=== PATIENT | female | born 1995 | race Caucasian/White ===

== ENCOUNTER 2022-04-30 17:44 | Observation (INO) | payer BC, MEDICAID, SELFPAY ==
[2022-04-30 17:45] VITALS: BP 138/88; PULSE 94; RESP 14; TEMP 36.4; O2SAT 98; BMI 22.3
--- NOTE | 2022-04-30 18:26 | EX.ED.SAOD ---
HPI History of Present Illness Chief Complaint: Substance Abuse Narrative Narrative: Patient presents wanting detox/rehab from fentanyl use and cocaine use. She states she last went through rehab in December at a different facility. She has never been through detox here. She states she uses at least a gram of fentanyl every other day. She snorts it. She also abuses cocaine. She has past psychiatric history of PTSD but states she does not take benzodiazepines or any other medication for it. Her boyfriend dropped her off because she states that she really wants to get clean. Last fentanyl use was early this morning. PFSH PFSH Medical History no medical history Allergy/AdvReac Type Severity Reaction Status Date / Time No Known Allergies Allergy Verified 04/30/22 17:45 Surgical History no surgical history Social History Smoking Status: Current every day smoker tobacco type: e-cigarettes ROS ROS ED ROS Narrative Constitutional: No fever, no chills. HEENT: No sore throat. No neck pain. No loss of vision. No rhinorrhea. Cardiovascular: No chest pain. No palpitations. No pedal edema. Respiratory: No cough, no shortness of breath. Abdominal: No abdominal pain. No nausea. No vomiting. Genitourinary: No dysuria. No hematuria. Musculoskeletal: No myalgias. No arthralgias. Neurologic: No headaches. No dizziness. No lightheadedness. Skin: No rash. No change in color. Psychiatric: No depression. No anxiety. EXAM Physical Exam Narrative Exam Narrative: Afebrile. Vital signs noted. HEENT: Normocephalic. Atraumatic. PERRL, EOMI. Neck soft and supple. No point tenderness or step off. Cardiovascular: Regular rate and rhythm. No murmurs, rubs, or gallops appreciated. Respiratory: No tachypnea. Lungs clear to auscultation bilaterally. Gastrointestinal: Abdomen soft, nontender, with normoactive bowel sounds. No rebound or guarding. Neurological: Awake. Alert. Nonfocal, nonlateralizing. Skin: No rash. Normal color. No pallor. Musculoskeletal: No pedal edema. Full range of motion extremities. Psychiatric: No suicidal ideation. Const Vital Signs: 04/30/22 17:45 Temperature 97.5 F L Temperature Source Temporal Pulse Rate 94 Respiratory Rate 14 Blood Pressure 138/88 H Blood Pressure Mean 104 Pulse Ox 98 Oxygen Delivery Method Room Air MDM MDM MDM Narrative Medical decision making narrative: Medical screening labs were obtained. They are positive for polysubstance abuse including benzodiazepines, amphetamines, cannabinoids, and MDMA. Patient was discussed with Dr. Loyola for admission for detox. Patient is in stable condition. Lab Data Attestation: I reviewed the patient's lab results. Labs: Laboratory Results - last 24 hr 04/30/22 04/30/22 04/30/22 18:45 18:45 18:45 WBC 6.1 RBC 5.57 H Hgb 15.8 H Hct 47.4 H MCV 85.1 MCH 28.4 MCHC 33.3 RDW Std Deviation 40.8 RDW Coeff of Laine 13.2 Plt Count 488 H MPV 9.3 Immature Gran % (Auto) 0.200 Neut % (Auto) 54.1 Lymph % (Auto) 37.4 [place] % (Auto) 5.7 Eos % (Auto) 2.3 Baso % (Auto) 0.3 Absolute Neuts (auto) 3.3 Absolute Lymphs (auto) 2.28 Nucleated RBC % 0 Sodium 139 Potassium 3.8 Chloride 104 Carbon Dioxide 33.0 H Anion Gap 2 L BUN 9 Creatinine 0.83 Estim Creat Clear Calc 89.47 Est GFR (MDRD) Af Amer 107 Est GFR (MDRD) Non-Af 89 BUN/Creatinine Ratio 10.8 Glucose 84 Calcium 9.7 Total Bilirubin 0.40 AST 17 ALT 48 Alkaline Phosphatase 102 Total Protein 8.9 H Albumin 4.3 Globulin 4.6 H Albumin/Globulin Ratio 0.9 Serum , Qual Urine Opiates Screen Urine Methadone Screen Ur Barbiturates Screen Ur Phencyclidine Scrn Ur Amphetamines Screen MDMA (Ecstasy) Screen U Benzodiazepines Scrn Urine Cocaine Screen U Cannabinoids Screen Ur Drug Screen Comment Ethyl Alcohol < 3.0 04/30/22 04/30/22 18:45 18:48 WBC RBC Hgb Hct MCV MCH MCHC RDW Std Deviation RDW Coeff of Laine Plt Count MPV Immature Gran % (Auto) Neut % (Auto) Lymph % (Auto) [place] % (Auto) Eos % (Auto) Baso % (Auto) Absolute Neuts (auto) Absolute Lymphs (auto) Nucleated RBC % Sodium Potassium Chloride Carbon Dioxide Anion Gap BUN Creatinine Estim Creat Clear Calc Est GFR (MDRD) Af Amer Est GFR (MDRD) Non-Af BUN/Creatinine Ratio Glucose Calcium Total Bilirubin AST ALT Alkaline Phosphatase Total Protein Albumin Globulin Albumin/Globulin Ratio Serum , Qual NEGATIVE Urine Opiates Screen POSITIVE H Urine Methadone Screen NEGATIVE Ur Barbiturates Screen NEGATIVE Ur Phencyclidine Scrn NEGATIVE Ur Amphetamines Screen POSITIVE H MDMA (Ecstasy) Screen POSITIVE H U Benzodiazepines Scrn POSITIVE H Urine Cocaine Screen POSITIVE H U Cannabinoids Screen POSITIVE H Ur Drug Screen Comment Ethyl Alcohol Discharge Plan Dx/Rx/DC Orders Clinical Impression: Polysubstance dependence, Desire for detoxification Disposition Disposition: Acute Care Hospital [facility]
--- NOTE | 2022-04-30 18:58 | CM.ED ---
NAA called Jerome, Addiction Therapist, and advised of patient's admission to [facility]. Tammy FRITZ
[2022-04-30 19:03] LABS: Absolute Lymphocyte Count 2.28 X10^3/uL (0.83-4.51); Absolute Neutrophil Count 3.3 X10^3/uL (2.0-7.7); Basophil# 0.02 X10^3/uL; Basophil% 0.3 % (0-1); Eosinophil# 0.14 X10^3/uL; Eosinophils% 2.3 % (0-5); Hematocrit 47.4 % (37-47); Hemoglobin 15.8 g/dL (12.0-15.0); Lymphocyte # 2.28 X10^3/ul (0.83-4.51); Lymphocyte % 37.4 % (19-41); Mean Corp Hgb Conc 33.3 g/dL (32-36); Mean Corpuscular Hgb 28.4 pg (27.0-32.0); Mean Corpuscular Volume 85.1 fL (81-99); Mean Platelet Vol. 9.3 fl (6.2-12.0); Monocyte# 0.35 X10^3/uL; Monocyte% 5.7 % (0-10); NRBC Flagged by Analyzer 0 % (0-5); Neutrophil # 3.29 X10^3/uL (2.7-7.7); Neutrophil % 54.1 % (47-70); Platelet Count 488 K/mm3 (150-450); RBC Distribution Width CV 13.2 % (11.6-14.6); RBC Distribution Width SD 40.8 fl (35.1-43.9); Red Blood Count 5.57 M/mm3 (4.2-5.4); White Blood Count 6.1 K/mm3 (4.4-11.0)
[2022-04-30 19:21] LABS: Amphetamine Urine VISTA POSITIVE (<1000 ng/mL); Barbiturate Urine VISTA NEGATIVE (< 200 ng/mL); Benzodiazepine Urine VISTA POSITIVE (< 200 ng/mL); Cocaine Urine VISTA POSITIVE (< 300 ng/mL); Ecstacy Urine VISTA POSITIVE (< 500 ng/mL); Methadone Urine VISTA NEGATIVE (< 300 ng/mL); PCP Urine VISTA NEGATIVE (< 25 ng/mL); THC Urine VISTA POSITIVE (< 50 ng/mL); Vista UDS pH Range 5
[2022-04-30 19:23] LABS: ALB/GLOB Ratio 0.9 RATIO (0.9-2.4); AST(SGOT) 17 U/L (15-37); Alanine Aminotransfer ALT/SGPT 48 U/L (13-56); Albumin, Serum 4.3 g/dL (3.2-5.0); Alkaline Phosphatase 102 U/L (45-117); Anion Gap 2 (5-15); BUN 9 mg/dL (7-18); BUN/Creat Ratio 10.8 RATIO (10-20); Calcium,Total 9.7 mg/dL (8.5-10.1); Chloride 104 mmol/L (98-107); Creatinine, Serum 0.83 mg/dL (0.55-1.02); EST Glomerular Filtration Rate 89 mL/min (>60); Est Glom Filt Rate - Afr Amer 107 mL/min (>60); Estimated Creatinine Clearance 89.47 ml/min; Globulin 4.6 g/dL (2.2-4.2); Glucose 84 mg/dL (74-106); Potassium 3.8 mmol/L (3.5-5.1); Protein, Total 8.9 g/dL (6.4-8.2); Sodium Level 139 mmol/L (136-145)
[2022-04-30 19:27] LABS: Internal QC Validated? YES +Cl - CLEAR BKGD; Pregnancy, Serum, hCG Quali. NEGATIVE Negative
[2022-04-30 19:28] LABS: Alcohol, Blood (Medical)-Serum < 3.0 mg/dL
--- NOTE | 2022-04-30 19:41 | CM.ED ---
NAA Note NAA met with patient briefly. She confirmed she is at the hospital for detox from fentanyl. Verbalized understanding of the RAMP rules. No issues or concerns voiced. NAA remains available if needs arise. Tammy FRITZ
--- NOTE | 2022-04-30 20:23 | PCM.HP.STD ---
[facility] - General General Date of Admission: 04/30/22 Date of Service: 04/30/22 Chief Complaint: Desire for detoxification HPI Narrative BRIAN MORALES, is a 27 F with a significant history of PTSD; anxiety disorder; depression and polysubstance abuse and tobacco use who presents to the emergency department with help for detoxification. Fentanyl use: Patient has been using fentanyl for about 1 year. She snorts it. She use of a quarter of a gram to a gram daily. Last time he used was several hours before presentation. Cocaine use: He has been using cocaine recreationally since age 22. She has been using it on and off. She uses about twice in a month. She snorts it. Also she smokes marijuana. Reportedly she has medical marijuana card and so she is allowed to smoke marijuana . She reports withdrawal symptoms of diaphoresis. [facility] Medical History (Updated 04/30/22 @ 20:[address] Doc Loyola MD) Polysubstance dependence Medical History no medical history Home Medications NK 04/30/22 [History Last Taken Unknown] Allergy/AdvReac Type Severity Reaction Status Date / Time No Known Allergies Allergy Verified 04/30/22 17:45 Family History (Updated 04/30/22 @ 20:[address] Doc Loyola MD) Other Alcoholism Suicide Surgical History no surgical history no surgical history Social History Smoking Status: Current every day smoker tobacco type: e-cigarettes ROS ROS Narrative Pertinent positives and pertinent negatives as noted in HPI. All other systems were reviewed and are negative Vital Signs Vital Signs Vital Signs: 04/30/22 17:45 Temperature 97.5 F L Temperature Source Temporal Pulse Rate 94 Respiratory Rate 14 Blood Pressure 138/88 H Blood Pressure Mean 104 Pulse Ox 98 Oxygen Delivery Method Room Air Weight Weight: 58.967 kg Body Mass Index (BMI) 22.3 Physical Exam Narrative Physical exam: General: Well-nourished, well-developed. Head: Normocephalic, atraumatic, no tenderness Eyes: Vision is grossly intact. EOMI ENT, no trauma, moist mucous membranes, no rhinorrhea Neck: Nontender, full range of motion, no spinal tenderness, deformities, step-off CVS: Regular rate and rhythm. S1-S2 present. No murmur, gallop or rub. Respiratory : clear to auscultation bilaterally, chest wall nontender, no wheezing Abdomen: Soft, nontender, nondistended, normal bowel sounds, no masses : Deferred Back: Nontender, no CVA tenderness, no midline spinal tenderness, deformities, step-offs Extremities: Nontender full range of motion, no trauma Skin: Normal color, no trauma, abrasions Neuro: Alert, oriented, cranial nerves II through XII grossly intact. Psychiatry: Normal mood. Normal affect. Not depressed. Not anxious. Results Lab / Micro Data Attestation: I reviewed the patient's lab results. Result Diagrams: 04/30/22 18:45 04/30/22 18:45 Labs: Laboratory Results - last 24 hr 04/30/22 18:45: WBC 6.1, RBC 5.57 H, Hgb 15.8 H, Hct 47.4 H, MCV 85.1, MCH 28.4, MCHC 33.3, RDW Std Deviation 40.8, RDW Coeff of Laine 13.2, Plt Count 488 H, MPV 9.3, Immature Gran % (Auto) 0.200, Neut % (Auto) 54.1, Lymph % (Auto) 37.4, [place] % (Auto) 5.7, Eos % (Auto) 2.3, Baso % (Auto) 0.3, Absolute Neuts (auto) 3.3, Absolute Lymphs (auto) 2.28, Nucleated RBC % 0 04/30/22 18:45: Sodium 139, Potassium 3.8, Chloride 104, Carbon Dioxide 33.0 H, Anion Gap 2 L, BUN 9, Creatinine 0.83, Estim Creat Clear Calc 89.47, Est GFR (MDRD) Af Amer 107, Est GFR (MDRD) Non-Af 89, BUN/Creatinine Ratio 10.8, Glucose 84, Calcium 9.7, Total Bilirubin 0.40, AST 17, ALT 48, Alkaline Phosphatase 102, Total Protein 8.9 H, Albumin 4.3, Globulin 4.6 H, Albumin/Globulin Ratio 0.9 04/30/22 18:45: Ethyl Alcohol < 3.0 04/30/22 18:45: Serum , Qual NEGATIVE 04/30/22 18:48: Urine Opiates Screen POSITIVE H, Urine Methadone Screen NEGATIVE, Ur Barbiturates Screen NEGATIVE, Ur Phencyclidine Scrn NEGATIVE, Ur Amphetamines Screen POSITIVE H, MDMA (Ecstasy) Screen POSITIVE H, U Benzodiazepines Scrn POSITIVE H, Urine Cocaine Screen POSITIVE H, U Cannabinoids Screen POSITIVE H, Ur Drug Screen Comment Assessment & Plan Assessment/Plan (1) Polysubstance dependence: PLAN: Plan Opioid dependence and withdrawal CBC reviewed showed thrombocytosis. Serum negative. Toxicology reviewed showed positive opiates; positive amphetamines; positive for MDMA; positive benzodiazepines; positive cocaine and positive cannabinoids. She denies methamphetamine use. Patient will be started on Subutex and other adjunctive medications: Gabapentin as needed; dicyclomine as needed; Vistaril as needed; methocarbamol as needed; clonidine as needed; Imodium as needed; trazodone as needed and Zofran as needed. Monitor COWS and CINA score Tobacco abuse Counseled Nicotine patch prescribed. DVT prophylaxis Low risk Encourage to ambulate Charges/Coding Visit Charges Inpatient E&M: 01906 Init Hosp L2
[2022-04-30 20:33] VITALS: BP 103/79; PULSE 67; RESP 15; TEMP 36.3; O2SAT 94
[2022-04-30 21:28] VITALS: BMI 21.9
[2022-04-30 21:33] VITALS: BP 128/91; PULSE 77; RESP 16; TEMP 36.9; O2SAT 98
[2022-04-30] MEDS: hydrOXYzine PAM 25 MG Capsule 50 MG PO (22:02)
[2022-04-30] MEDS: Methocarbamol 750 MG Tablet 1500 MG PO (22:02)
[2022-04-30] MEDS: traZODone 100 MG Tablet PO (22:02)
[2022-05-01 02:16] VITALS: BP 109/70; PULSE 72; RESP 14; TEMP 36.8; O2SAT 98
[2022-05-01 05:52] VITALS: BP 107/74; PULSE 62; RESP 16; TEMP 36.5; O2SAT 98
[2022-05-01] MEDS: hydrOXYzine PAM 25 MG Capsule 50 MG PO ×2 (05:56→16:14)
[2022-05-01] MEDS: Methocarbamol 750 MG Tablet 1500 MG PO ×2 (05:56→16:14)
--- NOTE | 2022-05-01 06:52 | PCM.PN.HOSP ---
Subjective Subjective + Restless legs, feels cold. Objective Data Objective Data Vital Signs: Vital Signs Temp Pulse Resp BP Pulse Ox O2 Del Method 36.5 C L 62 16 107/74 98 Room Air 05/01/22 05:52 05/01/22 05:52 05/01/22 05:52 05/01/22 05:52 05/01/22 05:52 05/01/22 05:52 Oxygen Delivery Method Room Air Weight: 56.1 kg Body Mass Index (BMI) 21.9 Lab / Micro Data Result Diagrams: 04/30/22 18:45 04/30/22 18:45 Labs: Laboratory Results - last 24 hr 04/30/22 18:45: WBC 6.1, RBC 5.57 H, Hgb 15.8 H, Hct 47.4 H, MCV 85.1, MCH 28.4, MCHC 33.3, RDW Std Deviation 40.8, RDW Coeff of Laine 13.2, Plt Count 488 H, MPV 9.3, Immature Gran % (Auto) 0.200, Neut % (Auto) 54.1, Lymph % (Auto) 37.4, [place] % (Auto) 5.7, Eos % (Auto) 2.3, Baso % (Auto) 0.3, Absolute Neuts (auto) 3.3, Absolute Lymphs (auto) 2.28, Nucleated RBC % 0 04/30/22 18:45: Sodium 139, Potassium 3.8, Chloride 104, Carbon Dioxide 33.0 H, Anion Gap 2 L, BUN 9, Creatinine 0.83, Estim Creat Clear Calc 89.47, Est GFR (MDRD) Af Amer 107, Est GFR (MDRD) Non-Af 89, BUN/Creatinine Ratio 10.8, Glucose 84, Calcium 9.7, Total Bilirubin 0.40, AST 17, ALT 48, Alkaline Phosphatase 102, Total Protein 8.9 H, Albumin 4.3, Globulin 4.6 H, Albumin/Globulin Ratio 0.9 04/30/22 18:45: Ethyl Alcohol < 3.0 04/30/22 18:45: Serum , Qual NEGATIVE 04/30/22 18:48: Urine Opiates Screen POSITIVE H, Urine Methadone Screen NEGATIVE, Ur Barbiturates Screen NEGATIVE, Ur Phencyclidine Scrn NEGATIVE, Ur Amphetamines Screen POSITIVE H, MDMA (Ecstasy) Screen POSITIVE H, U Benzodiazepines Scrn POSITIVE H, Urine Cocaine Screen POSITIVE H, U Cannabinoids Screen POSITIVE H, Ur Drug Screen Comment Physical Exam Const alert and no apparent distress HEENT head/scalp atraumatic Neuro oriented x3 Sensorium / Orientation: awake and alert Psych affect normal Assessment & Plan Assessment/Plan (1) Opiate withdrawal: PLAN: Patient will be started on Subutex and other adjunctive medications: Gabapentin as needed; dicyclomine as needed; Vistaril as needed; methocarbamol as needed; clonidine as needed; Imodium as needed; trazodone as needed and Zofran as needed. Monitor COWS and CINA score CBC reviewed showed thrombocytosis. Serum negative. Addiction medicine to see and facilitate program upon discharge (2) Polysubstance dependence: PLAN: Toxicology reviewed showed positive opiates; positive amphetamines; positive for MDMA; positive benzodiazepines; positive cocaine and positive cannabinoids. She denies methamphetamine use. Complicates long-term sobriety PLAN: Plan PTSD/Anxiety/Depression: complicates sobriety. Counseling strongly encouraged. Tobacco abuse: Counseled. Nicotine patch prescribed. DVT prophylaxis Low risk Encourage to ambulate Charges/Coding Visit Charges Inpatient E&M: 32285 Subs Hosp L2
[2022-05-01 10:34] VITALS: BP 104/74; PULSE 70; RESP 16; TEMP 36.6; O2SAT 98
[2022-05-01] MEDS: Gabapentin 300 MG Capsule PO ×2 (10:37→20:26)
--- NOTE | 2022-05-01 10:49 | ADDICTION ---
This underwriter mortgage loan met with PT to conduct ASAM, MSE, AUDIT, DUDIT assessments and to plan for d/c. PT A+Ox4 and participated actively. All assessments completed, and placed in PT's chart. PT plans to f/u with individual counselor at [facility] for outpatient counseling services. PT did not indicate a need for transportation post d/c from [facility].
--- NOTE | 2022-05-01 12:59 | CHAPLAIN ---
Type of Pastoral Visit ___ Initial Visit ___ Follow-up Visit ___ On-call Visit ___ General Patient Visit ___ Spiritual Assessment ___ Family Conference ___ Bereavement ___ Rapid Response ___ Code Blue ___ Other (describe below) Pastoral Care Referral From ___ Patient ___ Family ___ Nurse ___ Physician ___ Oracle Architect ___ Machine Stone Polisher Apprentice ___ Other (describe below) Sacrament/Intervention ___ Active listening ___ Anointing ___ Episcopalian ___ Bereavement ___ Communion ___ Gabi exploration ___ ___ Life review ___ Prayer ___ Reconciliation ___ Sacrament of Sick ___ Supportive presence ___ Wedding ___ Other (describe below) Pastoral Comments patient was sleeping at the time of attempted visit
[2022-05-01 16:09] VITALS: BP 109/69; PULSE 81; RESP 16; TEMP 36.8; O2SAT 97
[2022-05-01 20:16] VITALS: BP 124/74; PULSE 71; RESP 16; TEMP 36.9; O2SAT 99
[2022-05-01] MEDS: cloNIDine HCl 0.1 MG Tablet PO (20:26)
[2022-05-01] MEDS: traZODone 100 MG Tablet PO (20:26)
[2022-05-02 02:20] VITALS: BP 104/81; PULSE 80; RESP 14; TEMP 36.8; O2SAT 98
[2022-05-02] MEDS: hydrOXYzine PAM 25 MG Capsule 50 MG PO ×2 (02:24→08:48)
[2022-05-02] MEDS: Methocarbamol 750 MG Tablet 1500 MG PO ×2 (02:24→08:48)
[2022-05-02 06:07] VITALS: BP 119/87; PULSE 86; RESP 16; TEMP 36.8; O2SAT 97
--- NOTE | 2022-05-02 06:51 | PN.HOSP_ITS ---
Subjective Subjective feels better. had been declining buprenorphine d/t concerns for precipitated withdrawal Objective Data Objective Data Vital Signs: Vital Signs Temp Pulse Resp BP Pulse Ox O2 Del Method 36.8 C 86 16 119/87 H 97 Room Air 05/02/22 06:07 05/02/22 06:07 05/02/22 06:07 05/02/22 06:07 05/02/22 06:07 05/02/22 06:07 Oxygen Delivery Method Room Air Weight: 56.1 kg Body Mass Index (BMI) 21.9 Lab / Micro Data Result Diagrams: 04/30/22 18:45 04/30/22 18:45 Physical Exam Const alert and no apparent distress HEENT head/scalp atraumatic Neuro Sensorium / Orientation: awake and alert Psych affect normal Assessment & Plan Assessment/Plan (1) Opiate withdrawal: PLAN: Patient has not been taking the buprenorphine due to concern for precipitated withdrawal. Does appear that the patient next took a dose this morning. Gabapentin as needed; dicyclomine as needed; Vistaril as needed; methocarbamol as needed; clonidine as needed; Imodium as needed; trazodone as needed and Zofran as needed. Monitor COWS and CINA score CBC reviewed showed thrombocytosis. Serum negative. Patient to follow up with [facility] outpt counseling upon discharge. (2) Polysubstance dependence: PLAN: Toxicology reviewed showed positive opiates; positive amphetamines; positive for MDMA; positive benzodiazepines; positive cocaine and positive cannabinoids. She denies methamphetamine use. Complicates long-term sobriety PLAN: Plan PTSD/Anxiety/Depression: complicates sobriety. Counseling strongly encouraged. Tobacco abuse: Counseled. Nicotine patch prescribed. DVT prophylaxis Low risk Encourage to ambulate Disposition: Plan is for discharge on the first. Charges/Coding Visit Charges Inpatient E&M: 97603 Subs Hosp L1
[2022-05-02 07:51] VITALS: BP 108/73; PULSE 79; RESP 18; TEMP 37.1; O2SAT 95
[2022-05-02] MEDS: Buprenorphine HCl 2 MG TAB.SUBL 4 MG SL (08:44)
[2022-05-02] MEDS: Gabapentin 300 MG Capsule PO (10:53)
[2022-05-02] MEDS: cloNIDine HCl 0.1 MG Tablet PO (10:53)
--- NOTE | 2022-05-02 12:44 | CHAPLAIN ---
Type of Pastoral Visit _x__ Initial Visit ___ Follow-up Visit ___ On-call Visit ___ General Patient Visit ___ Spiritual Assessment ___ Family Conference ___ Bereavement ___ Rapid Response ___ Code Blue ___ Other (describe below) Pastoral Care Referral From _x__ Patient ___ Family ___ Nurse ___ Physician ___ Laborer [employer] ___ Parking Worker ___ Other (describe below) Sacrament/Intervention _x__ Active listening ___ Anointing ___ Nondenominational _x__ Bereavement ___ Communion _x__ Gabi exploration ___ _x__ Life review _x__ Prayer ___ Reconciliation ___ Sacrament of Sick _x__ Supportive presence ___ Wedding ___ Other (describe below) Pastoral Comments patient is awake and alert this day; pt is very welcoming of spiritual care and visit of this superintendent radio communications; pt is talkative and expresses her grief over loss in last year of great grandparents with whom she lived and admired; pt's mother of suicide in her senior high of school; pt's father lives close by but is distant from her and others per her report; pt states that she has very little support with exception of her boyfriend with whom she plans to move with to [place] tomorrow; pt reports that she is scared about her future and interprets that with decisions that must be made, unknowns, unresolved grief, fears about addictions; pt says that she has gabi and she reports her desire to have a spiritual life and to attend orthodox; pt is affirmed in thoughts of seeking a professional counselor and a orthodox fellowship when she moves to [place]; pt repeatedly states that I am so glad you came to talk to me and thank you for coming to see me; pt welcomes presence and prayer;
--- NOTE | 2022-05-02 13:02 | NURSING ---
pt resting quietly in bed. meal tray at bedside. pt states meds effective for anxiety and restltessness. pt asking for stuff to shower, supplies given. pt verbalized request that this nurse as Dr. Mays if she could be discharged later tonight instead of tomorrow. pt could not elaborate why she wanted to be discharged tonight or than she had stuff to do. explained to patient discharge would probably depend upon symptoms. pt denies all further needs. call light within reach
[2022-05-02 13:41] VITALS: BP 113/80; PULSE 76; RESP 18; TEMP 37.1; O2SAT 100
--- NOTE | 2022-05-02 14:24 | DCINST_ITS ---
Discharge Instructions Diet Discharge Diet: No restrictions Follow Up Care Please Follow Up With: Luz Elena Test Results: Test results from this visit will be discussed in further detail at your follow- up appointment, if applicable. Discharge Plan Admission Admit Date/Time: 04/30/22 20:20 Primary Reason for Your Visit: Opiate withdrawal Attending Provider: Yang Mays Primary Care Provider: Mauro Correa Consulting Providers: Doc Loyola Discharge Orders/Prescriptions Prescriptions: New ondansetron HCl 8 mg Tablet 8 mg PO Q8H PRN PRN (Reason: NAUSEA) Qty: 10 0RF Referrals / Follow Up: Mauro Correa MD [Primary Care Provider] - Disposition Disposition (needs filled in before D/C Order can be placed): Home, Self Care
--- NOTE | 2022-05-02 16:08 | PCM.DC.SUM ---
Providers Date of Admission: 04/30/22 Primary Care Physician: Mauro Correa MD Reason For Visit: DESIRE FOR DETOXIFICATION Diagnosis Discharge Diagnosis (1) Opiate withdrawal: Status: Acute Code(s): F11.93 - Opioid use, unspecified with withdrawal Plan: Patient has not been taking the buprenorphine due to concern for precipitated withdrawal. Does appear that the patient next took a dose this morning. Gabapentin as needed; dicyclomine as needed; Vistaril as needed; methocarbamol as needed; clonidine as needed; Imodium as needed; trazodone as needed and Zofran as needed. Monitor COWS and CINA score CBC reviewed showed thrombocytosis. Serum negative. Patient to follow up with [facility] outpt counseling upon discharge. (2) Polysubstance dependence: Status: Acute Code(s): F19.20 - Other psychoactive substance dependence, uncomplicated Plan: Toxicology reviewed showed positive opiates; positive amphetamines; positive for MDMA; positive benzodiazepines; positive cocaine and positive cannabinoids. She denies methamphetamine use. Complicates long-term sobriety Plan PTSD/Anxiety/Depression: complicates sobriety. Counseling strongly encouraged. Tobacco abuse: Counseled. Nicotine patch prescribed. DVT prophylaxis Low risk Encourage to ambulate Disposition: Plan is for discharge on the first. Medications at Discharge Home Medications ondansetron HCl 8 mg tablet 8 mg PO Q8H PRN PRN NAUSEA #10 tabs 05/02/22 Hospital Course Operations None Procedures None Summary of Care Provided Minutes Spent on Discharge: 28 Hospital Course: 27-year-old female presents seeking treatment for opiate withdrawal. Patient was offered buprenorphine but declined it until taking a dose today. She went took 1 dose and refused subsequent dosing. Patient from acute opiate withdrawal overall improved. Patient would follow-up with 180 as outpatient but still unclear if patient will actually follow-up. Weight / BMI Weight Weight: 56.1 kg Body Mass Index (BMI) 21.9 ABG / Lab / Microbiology Data Result Diagrams: 04/30/22 18:45 04/30/22 18:45 D/C Instructions Discharge Diet: No restrictions Please Follow Up With: Luz Elena Meaningful Use Info Meaningful Use Diagnoses (Choose all that apply): None applicable Discharge Plan Admission Admit Date/Time: 04/30/22 20:20 Primary Reason for Your Visit: Opiate withdrawal Attending Provider: Yang Mays Primary Care Provider: Mauro Correa Consulting Providers: Doc Loyola Discharge Orders/Prescriptions Prescriptions: New ondansetron HCl 8 mg Tablet 8 mg PO Q8H PRN PRN (Reason: NAUSEA) Qty: 10 0RF Referrals / Follow Up: Mauro Correa MD [Primary Care Provider] - Disposition Disposition (needs filled in before D/C Order can be placed): Home, Self Care Charges/Coding Visit Charges Inpatient E&M: 87670 Disch Hosp
--- NOTE | 2022-05-02 16:11 | NURSING ---
in to discuss dc plans and subutext with patient. pt decided does not want last dose of subutex. Dr. Mays updated, ok with discharge. plan to DC before 1800. attempted to call salesperson burial plots at patient's request. no response.
[2022-05-02 16:26] VITALS: BP 113/82; PULSE 84; RESP 18; TEMP 36.7; O2SAT 100
--- NOTE | 2022-05-02 16:29 | NURSING ---
dc instructions reviewed with patient. called Stef significant other with patient as she states she has no phone.
== END 2022-05-02 16:53 | disposition home or self-care (01) | DRG 897 ==
LOC: ED 20:20 → MS3 20:42
PROVIDERS: Admitting Provider Hospitalist; Emergency Provider Emergency Medicine; PCP Family Medicine
DX: F11.23 Opioid dependence with withdrawal (principal); F15.20 Other stimulant dependence, uncomplicated; F14.20 Cocaine dependence, uncomplicated; F17.290 Nicotine dependence, other tobacco product, uncomplicated; F32.A Depression, unspecified; F43.10 Post-traumatic stress disorder, unspecified; F41.9 Anxiety disorder, unspecified
CPT/HCPCS: 80053; 80307; 82077; 84703; 85025; 99283; 99406

== ENCOUNTER 2023-07-16 00:39 | Inpatient (IN) | payer MEDICAID, SELFPAY ==
[2023-07-16] VITALS (9 sets, daily range): BP systolic 107–136; BP diastolic 61–97; PULSE 60–108; RESP 14–18; TEMP 35.9–36.9; O2SAT 97–100; BMI 26.6
--- NOTE | 2023-07-16 01:44 | EDS_ITS ---
HPI History of Present Illness Chief Complaint: Substance Abuse Informant: patient Narrative Narrative: 28-year-old female presenting to the emergency room requesting detox from fentanyl. Patient states that she snorts fentanyl daily and occasionally uses cocaine. She states she is done various rehab programs in the past. She is from the [facility] but does not have a formal residence. Patient states she has tried Suboxone in the past. She is nervous about doing that program. She is interested in sober living. She denies any evident legal issues. She denies IV drug use. Denies risk of . She last use about 1800 hrs. today [facility] Medical History Anxiety Depression Polysubstance dependence PTSD (post-traumatic stress disorder) Vapes nicotine containing substance Home Medications ondansetron HCl 8 mg tablet 8 mg PO Q8H PRN PRN NAUSEA #10 tabs 05/02/22 [Rx Last Taken Unknown] buspirone 10 mg tablet 10 mg PO DAILY 07/16/23 [History Last Taken Unknown] hydroxyzine HCl 50 mg tablet 50 mg PO Q8H PRN anxiety 07/16/23 [History Last Taken Unknown] Allergy/AdvReac Type Severity Reaction Status Date / Time No Known Allergies Allergy Verified 07/16/23 00:40 Family History Other Alcoholism Suicide Social History Smoking Status: Current every day smoker tobacco type: e-cigarettes ROS ROS ED Constitutional Constitutional ED: Denies chills or weight loss Eyes Eyes: Denies change in vision or diplopia ENT ENT ED: Denies ear pain, rhinorrhea or sore throat Cardiovascular Cardiovascular: Denies chest pain, orthopnea, palpitations or racing heartbeat Respiratory/Chest Respiratory/Chest: Denies cough, dyspnea or orthopnea Gastrointestinal Gastrointestinal: Denies abdominal pain, diarrhea, nausea or vomiting Genitourinary Genitourinary ED: Denies dysuria, hematuria or urinary frequency Musculoskeletal Musculoskeletal: Denies arthralgias or myalgias Integumentary Denies abscess or rash Neurologic Neurologic: Denies headache(s) or weakness Psychiatric Psychiatric: Reports other Details: Anxious ; Denies anxiety, depression, suicidal ideation or suicidal thoughts Endocrine Endocrinology: Denies polydipsia, polyphagia or polyuria Allergic/Immunologic Allergic/Immunologic ED: Denies mouth swelling, tongue swelling or urticaria EXAM Physical Exam Const Vital Signs: 07/16/23 00:40 07/16/23 00:59 Temperature 96.6 F L Temperature Source Temporal Pulse Rate 108 H 99 Respiratory Rate 18 14 Blood Pressure 136/90 H 136/90 H Blood Pressure Mean 105 105 Pulse Ox 97 98 Oxygen Delivery Method Room Air Positive well nourished and well developed General Appearance ED: well developed HEENT Reports normocephalic, head/scalp atraumatic and moist mucous membranes Eyes PERRL and EOMs intact bilaterally Neck no lymphadenopathy, supple and no JVD Resp normal respiratory effort and clear to auscultation bilaterally Cardio regular rate, regular rhythm and no murmurs GI normal to inspection, nondistended, normoactive bowel sounds and non-tender Palpation: soft Back/Spine no CVA tenderness and normal ROM Extremity normal to inspection General Extremety ED: Negative for edema General Extremity: Negative for edema Neuro oriented x3 and CN's II-XII intact bilaterally Sensorium / Orientation: alert Motor Exam: strength 5/5 throughout Psych mental status grossly normal Mood & Affect: Negative for depressed or tearful Skin no rashes or lesions noted and no wounds MDM MDM MDM Narrative Medical decision making narrative: ED addiction labs will be obtained and reviewed. I will speak with the hospitalist regarding admission after reviewing them. Patient is positive for MDMA and cocaine. test is negative. Lab Data Attestation: I reviewed the patient's lab results. Labs: Laboratory Results - last 24 hr 07/16/23 07/16/23 01:35 01:39 WBC 10.6 RBC 4.76 Hgb 13.3 Hct 41.0 MCV 86.1 MCH 27.9 MCHC 32.4 RDW Std Deviation 41.1 RDW Coeff of Laine 13.2 Plt Count 388 MPV 9.0 Immature Gran % (Auto) 0.300 Neut % (Auto) 57.6 Lymph % (Auto) 28.3 [place] % (Auto) 8.7 Eos % (Auto) 4.5 Baso % (Auto) 0.6 Absolute Neuts (auto) 6.1 Absolute Lymphs (auto) 3.00 Nucleated RBC % 0 Sodium 141 Potassium 3.7 Chloride 105 Carbon Dioxide 31.0 Anion Gap 5 BUN 9 Creatinine 0.75 Estim Creat Clear Calc 98.16 Est GFR (MDRD) Af Amer 120 Est GFR (MDRD) Non-Af 99 BUN/Creatinine Ratio 12.0 Glucose 101 Calcium 8.9 Total Bilirubin 0.30 AST 16 ALT 39 Alkaline Phosphatase 89 Total Protein 7.2 Albumin 3.6 Globulin 3.6 Albumin/Globulin Ratio 1.0 Serum , Qual NEGATIVE Urine Opiates Screen NEGATIVE Urine Methadone Screen NEGATIVE Ur Barbiturates Screen NEGATIVE Ur Phencyclidine Scrn NEGATIVE Ur Amphetamines Screen NEGATIVE MDMA (Ecstasy) Screen POSITIVE H U Benzodiazepines Scrn NEGATIVE Urine Cocaine Screen POSITIVE H U Cannabinoids Screen NEGATIVE Ur Drug Screen Comment Ethyl Alcohol < 3.0 Management Discussion w/another healthcare provider: Hospitalist Discharge Plan Dx/Rx/DC Orders Clinical Impression: Opiate withdrawal, Opiate addiction Disposition Disposition: Acute Care Hospital [facility]
[2023-07-16 01:49] LABS: Absolute Neutrophil Count 6.1 X10^3/uL (2.0-7.7); Basophil# 0.06 X10^3/uL; Basophil% 0.6 % (0-1); Eosinophil# 0.48 X10^3/uL; Eosinophils% 4.5 % (0-5); Hemoglobin 13.3 g/dL (12.0-15.0); Lymphocyte % 28.3 % (19-41); Mean Corp Hgb Conc 32.4 g/dL (32-36); Mean Corpuscular Hgb 27.9 pg (27.0-32.0); Mean Corpuscular Volume 86.1 fL (81-99); Monocyte# 0.92 X10^3/uL; Monocyte% 8.7 % (0-10); NRBC Flagged by Analyzer 0 % (0-5); Neutrophil % 57.6 % (47-70); Platelet Count 388 K/mm3 (150-450); RBC Distribution Width CV 13.2 % (11.6-14.6); RBC Distribution Width SD 41.1 fl (35.1-43.9); Red Blood Count 4.76 M/mm3 (4.2-5.4); White Blood Count 10.6 K/mm3 (4.4-11.0)
[2023-07-16 02:01] LABS: Alcohol, Blood (Medical)-Serum < 3.0 mg/dL
[2023-07-16 02:06] LABS: AST(SGOT) 16 U/L (15-37); Alanine Aminotransfer ALT/SGPT 39 U/L (13-56); Albumin, Serum 3.6 g/dL (3.2-5.0); Alkaline Phosphatase 89 U/L (45-117); Anion Gap 5 (5-15); BUN 9 mg/dL (7-18); Calcium,Total 8.9 mg/dL (8.5-10.1); Chloride 105 mmol/L (98-107); Creatinine, Serum 0.75 mg/dL (0.55-1.02); EST Glomerular Filtration Rate 99 mL/min (>60); Est Glom Filt Rate - Afr Amer 120 mL/min (>60); Estimated Creatinine Clearance 98.16 ml/min; Globulin 3.6 g/dL (2.2-4.2); Glucose 101 mg/dL (74-106); Potassium 3.7 mmol/L (3.5-5.1); Protein, Total 7.2 g/dL (6.4-8.2); Sodium Level 141 mmol/L (136-145)
[2023-07-16 02:07] LABS: Internal QC Validated? YES +Cl - CLEAR BKGD; Pregnancy, Serum, hCG Quali. NEGATIVE Negative
[2023-07-16 02:09] LABS: Amphetamine Urine VISTA NEGATIVE (<1000 ng/mL); Barbiturate Urine VISTA NEGATIVE (< 200 ng/mL); Benzodiazepine Urine VISTA NEGATIVE (< 200 ng/mL); Cocaine Urine VISTA POSITIVE (< 300 ng/mL); Ecstacy Urine VISTA POSITIVE (< 500 ng/mL); Methadone Urine VISTA NEGATIVE (< 300 ng/mL); PCP Urine VISTA NEGATIVE (< 25 ng/mL); THC Urine VISTA NEGATIVE (< 50 ng/mL); Vista UDS pH Range 7
--- NOTE | 2023-07-16 03:24 | HP.PCM.HOS_ITS ---
HPI - General General Date of Admission: 07/16/23 Date of Service: 07/16/23 Chief Complaint: Opiate detox HPI Narrative BRIAN MORALES, is a 28 F who presented to the emergency department at [facility] early on 07/16/2023 requesting detox from opiates. Patient's been using for about the last 2 years and indicates she uses about a half a gram a day. Her last use prior to presentation was about 6 PM. She denies any cur rent withdrawal symptoms. About 3 to 4 weeks ago she underwent self detox at home and had minimal symptoms however she was not able to stay sober for any period of time so she decided to present to get more assistance. She denies any other substance abuse however her toxicology screen is also positive for cocaine and MDMA. I suspect it is positive for ecstasy due to her buspirone use at home. Her vital signs are stable. Her CBC is unremarkable. Her chemistry panel is unremarkable. She currently denies any withdrawal symptoms at the time of presentation. All of her previous use has been intranasal. She also admits to utilizing nicotine via vaping. She currently denies need for nicotine patch. [facility] Medical History Anxiety Depression Polysubstance dependence PTSD (post-traumatic stress disorder) Vapes nicotine containing substance Home Medications ondansetron HCl 8 mg tablet 8 mg PO Q8H PRN PRN NAUSEA #10 tabs 05/02/22 [Rx Last Taken Unknown] buspirone 10 mg tablet 10 mg PO DAILY 07/16/23 [History Last Taken Unknown] hydroxyzine HCl 50 mg tablet 50 mg PO Q8H PRN anxiety 07/16/23 [History Last Taken Unknown] Allergy/AdvReac Type Severity Reaction Status Date / Time No Known Allergies Allergy Verified 07/16/23 00:40 Family History Other Alcoholism Suicide no surgical history Social History (Updated 07/16/23 @ 03:[address] Azeb Zurita DO) Smoking Status: Current every day smoker tobacco type: e-cigarettes alcohol intake: never substance use type: opiates ROS Constitutional Constitutional: Denies anorexia, change in weight, chills, fatigue, fever(s), malaise, night sweats, weakness or other Eyes Eyes: Denies blurry vision, change in eye color, change in vision, discharge from eye(s), double vision, erythema, eye pain, loss of vision or other ENT HEENT: Denies abnormal hearing, dysphagia, ear pain, epistaxis, headache(s), hearing loss, nasal congestion, nasal discharge, post nasal drip, sinus pre ssure, sore throat or other Cardiovascular Cardiovascular: Denies chest pain, claudication, dyspnea on exertion, edema, lightheadedness, orthopnea, palpitations, paroxysmal nocturnal dyspnea, rapid heart rate, syncope or other Respiratory/Chest Respiratory/Chest: Denies cough, dyspnea, excessive phlegm production, hemoptysis, productive cough, shortness of breath at rest, shortness of breath with exertion, wheezing or other Gastrointestinal Gastrointestinal: Denies abdominal pain, coffee ground emesis, constipation, diarrhea, dyspepsia, hematemesis, hematochezia, loose stools, melena, nausea, vomiting or other Genitourinary Genitourinary: Denies burning urination, difficulty urinating, dysuria, hematuria, nocturia, urinary frequency, urinary hesitancy, urinary incontinence, urinary urgency or other Musculoskeletal Musculoskeletal: Denies arthralgias, back pain, joint pain, joint stiffness, joint swelling, myalgias, neck pain or other Neurologic Neurologic: Denies abnormal gait, abnormal speech, confusion, disequilibrium, dizziness, focal weakness, headache(s), numbness, paresthesias, seizure-like activity, seizures, syncope, tingling, tremor(s) or other Psychiatric Psychiatric: Reports anxiety and depression; Denies homicidal ideation, suicidal ideation or other Endocrine Endocrinology: Denies change in body appearance, cold intolerance, excessive sweating, heat intolerance, polydipsia, polyuria or other Hematologic/Lymphatic Hematologic/Lymphatic: Denies anemia, easy bleeding, easy bruising, lymphadenopathy or other Allergic/Immunologic Allergic/Immunologic: Denies rhinitis, hives, eczemia, asthma or other Vital Signs Vital Signs Vital Signs: 07/16/23 00:40 07/16/23 00:59 Temperature 96.6 F L Temperature Source Temporal Pulse Rate 108 H 99 Respiratory Rate 18 14 Blood Pressure 136/90 H 136/90 H Blood Pressure Mean 105 105 Pulse Ox 97 98 Oxygen Delivery Method Room Air Weight Weight: 70.5 kg Body Mass Index (BMI) 26.6 Physical Exam Const alert, oriented x3, no apparent distress, average body habitus and well nourished Constitutional Narrative: Young, white female, sitting up in bed, appears comfortable nontoxic, no current obvious withdrawal symptoms General Appearance: cooperative HEENT normocephalic, head/scalp atraumatic, hearing grossly normal bilaterally and moist oral mucous membranes Resp normal respiratory effort, no retractions, no use of accessory muscles and clear to auscultation bilaterally Auscultation: Negative for rales, rhonchi or wheezes Cardio regular rate, regular rhythm, S1 normal heart sound, S2 normal heart sound, no murmurs, no rub, no gallops and no clicks GI normal to inspection, nondistended, normoactive bowel sounds, soft to palpation and non-tender Extremity no clubbing, cyanosis or edema Extremity Narrative: Pedal pulses are 2+ Skin Skin Narrative: Very superficial what appear to be cutting wang on the dorsal surfaces of her left arm Neuro oriented x3, moves all extremities and no focal motor deficits Speech: speech normal Psych affect normal Psych Narrative: Eye contact is good, mood appears to be stable Results Lab / Micro Data 07/16/23 01:35 07/16/23 01:35 Labs: Laboratory Results - last 24 hr 07/16/23 01:35: WBC 10.6, RBC 4.76, Hgb 13.3, Hct 41.0, MCV 86.1, MCH 27.9, MCHC 32.4, RDW Std Deviation 41.1, RDW Coeff of Laine 13.2, Plt Count 388, MPV 9.0, Immature Gran % (Auto) 0.300, Neut % (Auto) 57.6, Lymph % (Auto) 28.3, Wallace % (Auto) 8.7, Eos % (Auto) 4.5, Baso % (Auto) 0.6, Absolute Neuts (auto) 6.1, Abs olute Lymphs (auto) 3.00, Nucleated RBC % 0, Sodium 141, Potassium 3.7, Chloride 105, Carbon Dioxide 31.0, Anion Gap 5, BUN 9, Creatinine 0.75, Estim Creat Clear Calc 98.16, Est GFR (MDRD) Af Amer 120, Est GFR (MDRD) Non-Af 99, BUN/Creatinine Ratio 12.0, Glucose 101, Calcium 8.9, Total Bilirubin 0.30, AST 16, ALT 39, Alkaline Phosphatase 89, Total Protein 7.2, Albumin 3.6, Globulin 3.6, Albumin/Globulin Ratio 1.0, Serum , Qual NEGATIVE, Ethyl Alcohol < 3.0 07/16/23 01:39: Urine Opiates Screen NEGATIVE, Urine Methadone Screen NEGATIVE, Ur Barbiturates Screen NEGATIVE, Ur Phencyclidine Scrn NEGATIVE, Ur Amphetamines Screen NEGATIVE, MDMA (Ecstasy) Screen POSITIVE H, U Benzodiazepines Scrn NEGATIVE, Urine Cocaine Screen POSITIVE H, U Cannabinoids Screen NEGATIVE, Ur Drug Screen Comment Assessment & Plan Assessment/Plan (1) Opiate addiction: (2) Opiate withdrawal: (3) Nicotine abuse: PLAN: Plan Opiate abuse with pending withdrawal -Patient admits to using intranasal half a gram daily -Subutex taper per [facility] protocol -Supportive medications as needed -180 consultation Anxiety -Continue home BuSpar -Continue as needed hydroxyzine Nicotine abuse -Patient vapes -Denied the need for nicotine patch -I did inform her if she feels that she needs nicotine replacement therapy to please let us know DVT prophylaxis -Low risk -Early and frequent ambulation CODE STATUS Full code Charges/Coding Visit Charges Inpatient E&M: 69047 Init Hosp L1
--- NOTE | 2023-07-16 03:41 | ED.RN ---
This RN notified by boiler operator helper that pt was calling [facility] power crane operator and debora, talking about medical history and requesting medications. Went to pt room to address needs. Pt states he needs pain medication. Reminded pt he was offered medication and he declined. Pt states obviously you've never been in fucking pain and have no idea what fucking pain is! Again offered pain medication and pt declined.
[2023-07-16] MEDS: busPIRone 5 MG Tablet 10 MG PO (09:34)
--- NOTE | 2023-07-16 15:24 | CHAPLAIN ---
Type of Pastoral Visit ___ Initial Visit ___ Follow-up Visit ___ On-call Visit ___ General Patient Visit ___ Spiritual Assessment ___ Family Conference ___ Bereavement ___ Rapid Response ___ Code Blue ___ Other (describe below) Pastoral Care Referral From ___ Patient ___ Family ___ Nurse ___ Physician ___ Program Coordinator ___ Director Learning And Development ___ Other (describe below) Sacrament/Intervention ___ Active listening ___ Anointing ___ Roman Catholic ___ Bereavement ___ Communion ___ Gabi exploration ___ ___ Life review ___ Prayer ___ Reconciliation ___ Sacrament of Sick ___ Supportive presence ___ Wedding ___ Other (describe below) Pastoral Comments patient was sleeping at time of attempted visit
--- NOTE | 2023-07-16 16:26 | PCM.PN.HOSP ---
Reason for Visit Reason for Visit: Diagnoses Opioid dependence, uncomplicated (07/16/23) Opioid use, unspecified with withdrawal (07/16/23) Tobacco use (07/16/23) Subjective Subjective Patient seen at bedside this morning. Patient was sleeping in an awkward position on my arrival to the room, with head slumped to the side. Awoke without issue but did appear drowsy throughout my interview. Have concerned that patient may have been high during the interview. Nursing staff confirm that patient has been somnolent throughout the morning, and nurse with addiction medicine also thinks that patient appears to be high on an opiate. Very unlikely her high from yesterday would have lasted this long, have concern that patient may have brought opiates into the hospital and taken them this morning. Patient otherwise denies any acute pain or discomfort. Patient did refuse Subutex this morning notably. Objective Data Objective Data Vital Signs: Vital Signs Temp Pulse Resp BP Pulse Ox O2 Del Method 98.2 F 60 18 112/63 98 Room Air 07/16/23 15:02 07/16/23 15:02 07/16/23 15:02 07/16/23 15:02 07/16/23 15:02 07/16/23 15:02 Oxygen Delivery Method Room Air Weight: 70.5 kg Body Mass Index (BMI) 26.6 Intake & Output: Intake and Output for Last 24 Hours 07/14/23 07/15/23 07/16/23 23:59 23:59 23:59 Intake Total 800 / 800 Balance 800 / 800 Lab / Micro Data 07/16/23 01:35 07/16/23 01:35 Labs: Laboratory Results - last 24 hr 07/16/23 01:35: WBC 10.6, RBC 4.76, Hgb 13.3, Hct 41.0, MCV 86.1, MCH 27.9, MCHC 32.4, RDW Std Deviation 41.1, RDW Coeff of Laine 13.2, Plt Count 388, MPV 9.0, Immature Gran % (Auto) 0.300, Neut % (Auto) 57.6, Lymph % (Auto) 28.3, [place] % (Auto) 8.7, Eos % (Auto) 4.5, Baso % (Auto) 0.6, Absolute Neuts (auto) 6.1, Absolute Lymphs (auto) 3.00, Nucleated RBC % 0, Sodium 141, Potassium 3.7, Chloride 105, Carbon Dioxide 31.0, Anion Gap 5, BUN 9, Creatinine 0.75, Estim Creat Clear Calc 98.16, Est GFR (MDRD) Af Amer 120, Est GFR (MDRD) Non-Af 99, BUN/Creatinine Ratio 12.0, Glucose 101, Calcium 8.9, Total Bilirubin 0.30, AST 16, ALT 39, Alkaline Phosphatase 89, Total Protein 7.2, Albumin 3.6, Globulin 3.6, Albumin/Globulin Ratio 1.0, Serum , Qual NEGATIVE, Ethyl Alcohol < 3.0 07/16/23 01:39: Urine Opiates Screen NEGATIVE, Urine Methadone Screen NEGATIVE, Ur Barbiturates Screen NEGATIVE, Ur Phencyclidine Scrn NEGATIVE, Ur Amphetamines Screen NEGATIVE, MDMA (Ecstasy) Screen POSITIVE H, U Benzodiazepines Scrn NEGATIVE, Urine Cocaine Screen POSITIVE H, U Cannabinoids Screen NEGATIVE, Ur Drug Screen Comment Physical Exam Const alert, no apparent distress and average body habitus Constitutional Narrative: Appeared drowsy but otherwise answering questions appropriately. General Appearance: cooperative and comfortable HEENT normocephalic, head/scalp atraumatic, hearing grossly normal bilaterally, nasal mucous membranes and turbinates normal and moist oral mucous membranes Eyes PERRL, EOMs intact bilaterally and conjunctivae normal Neck full ROM, no lymphadenopathy and supple Lymph Lymphatic: no lymphadenopathy noted Chest inspection of chest normal Resp normal respiratory effort, normal air movement, no use of accessory muscles and clear to auscultation bilaterally Cardio regular rate, regular rhythm, no murmurs and peripheral pulses 2+ throughout GI normal to inspection, nondistended, normoactive bowel sounds, soft to palpation, non-tender and non-distended Back/Spine normal ROM Extremity normal to inspection, full ROM and no pedal edema Skin no rashes or lesions noted Assessment & Plan Assessment/Plan (1) Opiate addiction: PLAN: Plan Patient is a 28-year-old female who presented to [facility] ED on 07/15/2023 for opiate detoxification. 1. Opiate abuse, polysubstance abuse On admission patient reported using opiates daily for past 2 years. Urine drug screen on admission negative for opiates but this is common with fentanyl use; was positive for cocaine use. ? Opiate withdrawal order set ordered on admission. Case management and addition medicine consulted. Unfortunately, patient appears to be high on opiates in the room on 07/16, had concern for possible illicit opiate use in hospital. Will monitor patient closely. 2. Nicotine abuse ? Patient reports vaping on a consistent basis. Denies need for nicotine patch on admission. Monitor. 3. History of anxiety ? Continue home BuSpar. DVT prophylaxis: Low risk, encouraged ambulation CODE STATUS: Full code, verified Expected disposition: Home, TBD Total clinical time spent by myself addressing the patient's medical issues, reviewing all the data, and collaborating with patient's care team: 25 minutes. Charges/Coding Visit Charges Inpatient E&M: 51116 Subs Hosp L1
[2023-07-17 03:00] VITALS: BP 115/70; PULSE 78; RESP 16; TEMP 36.6; O2SAT 98
[2023-07-17 10:00] VITALS: BP 125/82; PULSE 75; RESP 14; TEMP 36.3; O2SAT 100
--- NOTE | 2023-07-17 10:02 | ADDICTION ---
This va underwriter met with PT to conduct ASAM, MSE, AUDIT assessments and to plan for d/c. PT A+Ox4 and participated actively. All assessments completed and placed in PT's chart. PT plans to f/u with [facility] for follow-up MAT and treatment services. PT did not indicate a need for transportation post d/c from [facility].
[2023-07-17] MEDS: hydrOXYzine PAM 25 MG Capsule 50 MG PO ×2 (10:30→21:57)
[2023-07-17] MEDS: busPIRone 5 MG Tablet 10 MG PO (10:30)
[2023-07-17] MEDS: Influenza Virus Vac Quad 23-24 60 MCG/0.5 ML SYRINGE IM (10:31)
--- NOTE | 2023-07-17 14:29 | CHAPLAIN ---
Type of Pastoral Visit _x__ Initial Visit ___ Follow-up Visit ___ On-call Visit ___ General Patient Visit ___ Spiritual Assessment ___ Family Conference ___ Bereavement ___ Rapid Response ___ Code Blue ___ Other (describe below) Pastoral Care Referral From _x__ Patient ___ Family ___ Nurse ___ Physician ___ Program Management Analyst ___ Farm Machinery Mechanic ___ Other (describe below) Sacrament/Intervention _x__ Active listening ___ Anointing ___ Mosque ___ Bereavement ___ Communion ___ Gabi exploration ___ ___ Life review _x__ Prayer ___ Reconciliation ___ Sacrament of Sick ___ Supportive presence ___ Wedding ___ Other (describe below) Pastoral Comments patient acknowledges the analytics specialist but has much difficulty opening eyes and being alert; pt does request a prayer be given and states that she wants to be well and clean; words of support and encouragement given along with the prayer
[2023-07-17 14:30] VITALS: BP 112/66; PULSE 59; RESP 14; TEMP 36.5; O2SAT 99
--- NOTE | 2023-07-17 15:05 | PN.HOSP_ITS ---
Reason for Visit Reason for Visit: Diagnoses Opioid dependence, uncomplicated (07/16/23) Opioid use, unspecified with withdrawal (07/16/23) Tobacco use (07/16/23) Subjective Subjective No acute events overnight. Patient seen at bedside this morning. Sitting comfortably in bed, conversing normally, no acute distress. Patient appears more awake and alert this morning than yesterday. States he has had mild withdrawal symptoms of abdominal cramping, nausea, myalgias, mild shaking. Does report good p.o. intake over the last day. No other acute concerns at this time. Objective Data Objective Data Vital Signs: Vital Signs Temp Pulse Resp BP Pulse Ox O2 Del Method 97.3 F L 75 14 125/82 H 100 Room Air 07/17/23 10:00 07/17/23 10:00 07/17/23 10:00 07/17/23 10:00 07/17/23 10:00 07/17/23 10:00 Oxygen Delivery Method Room Air Weight: 70.5 kg Body Mass Index (BMI) 26.6 Intake & Output: Intake and Output for Last 24 Hours 07/15/23 07/16/23 07/17/23 23:59 23:59 23:59 Intake Total 1100 / 1500 1200 / 1200 Balance 1100 / 1500 1200 / 1200 Lab / Micro Data 07/16/23 01:35 07/16/23 01:35 Physical Exam Const alert, oriented x3, no apparent distress and average body habitus Constitutional Narrative: Patient alert and oriented this morning, answering questions appropriately, no acute distress. General Appearance: cooperative and comfortable HEENT normocephalic, head/scalp atraumatic, hearing grossly normal bilaterally, nasal mucous membranes and turbinates normal and moist oral mucous membranes Eyes PERRL, EOMs intact bilaterally and conjunctivae normal Neck full ROM, no lymphadenopathy and supple Lymph Lymphatic: no lymphadenopathy noted Chest inspection of chest normal Resp normal respiratory effort, normal air movement, no use of accessory muscles and clear to auscultation bilaterally Cardio regular rate, regular rhythm, no murmurs and peripheral pulses 2+ throughout GI normal to inspection, nondistended, normoactive bowel sounds, soft to palpation, non-tender and non-distended Back/Spine normal ROM Extremity normal to inspection, full ROM and no pedal edema Skin no rashes or lesions noted Assessment & Plan Assessment/Plan (1) Opiate addiction: PLAN: Plan Patient is a 28-year-old female who presented to [facility] ED on 07/15/2023 for opiate detoxification. 1. Opiate abuse, polysubstance abuse On admission patient reported using opiates daily for past 2 years. Urine drug screen on admission negative for opiates but this is common with fentanyl use; was positive for cocaine use. Patient notably appeared to be high on opiates in the room on 07/16, had concern for possible illicit opiate use in hospital. Has had no further issues since then. ? Continue symptomatic treatment per opiate withdrawal order set as needed. Patient notably has not taken any Subutex yet due to concern for precipitating withdrawal symptoms. Case management following. 2. Nicotine abuse ? Patient reports vaping on a consistent basis. Denies need for nicotine patch on admission. Monitor. 3. History of anxiety ? Continue home BuSpar. DVT prophylaxis: Low risk, encouraged ambulation CODE STATUS: Full code, verified Expected disposition: Home, 1 to 2 days Total clinical time spent by myself addressing the patient's medical issues, reviewing all the data, and collaborating with patient's care team: 25 minutes. Charges/Coding Visit Charges Inpatient E&M: 60533 Subs Hosp L1
[2023-07-17 21:44] VITALS: BP 118/83; PULSE 88; RESP 16; TEMP 36.7; O2SAT 100
[2023-07-18 06:44] VITALS: BP 108/70; PULSE 62; RESP 16; TEMP 36.6; O2SAT 100
[2023-07-18 08:57] VITALS: O2SAT 96
[2023-07-18 09:15] VITALS: BP 124/92; PULSE 70; RESP 16; TEMP 36.6; O2SAT 99
[2023-07-18] MEDS: busPIRone 5 MG Tablet 10 MG PO (09:16)
--- NOTE | 2023-07-18 13:25 | PCM.DC ---
Discharge Instructions Diet Discharge Diet: No restrictions Activity Discharge Activity: Return to Normal Activity Weight Bearing Status: Full weight bearing Follow Up Care Please Follow Up With: Mauro Correa MD When: As needed Test Results: Test results from this visit will be discussed in further detail at your follow-up appointment, if applicable. Pending Tests Upon Discharge: None Discharge Plan Admission Admit Date/Time: 07/16/23 03:19 Primary Reason for Your Visit: Opiate detoxification Attending Provider: Mansoor Licona Primary Care Provider: Mauro Correa Consulting Providers: Azeb Zurita Instructions Additional Instructions / Restrictions: Continue home BuSpar medication as prescribed. Follow-up with your primary care doctor as needed. Follow-up with [facility] for further addiction medicine services as needed. Discharge Orders/Prescriptions Prescriptions: Continued buspirone 10 mg tablet 10 mg PO DAILY Discontinued ondansetron HCl 8 mg Tablet 8 mg PO Q8H PRN PRN (Reason: NAUSEA) Qty: 10 0RF hydroxyzine HCl 50 mg tablet 50 mg PO Q8H PRN (Reason: anxiety) Patient Comments: take 1 tablet by mouth every 8 hours if needed for anxiety Referrals / Follow Up: Mauro Correa MD [Primary Care Provider] - Mauro Correa MD [[facility]] - Disposition Disposition (needs filled in before D/C Order can be placed): Home, Self Care
--- NOTE | 2023-07-18 13:27 | DS.PCM_ITS ---
Providers Date of Admission: 07/16/23 Date of Discharge: 07/18/23 Primary Care Physician: Dr. Mauro Correa MD Reason For Visit: OPIATE DETOX Diagnosis Discharge Diagnosis (1) Opiate addiction: Status: Acute Code(s): F11.20 - Opioid dependence, uncomplicated Medications at Discharge Home Medications buspirone 10 mg tablet 10 mg PO DAILY 07/16/23 Hospital Course Operations None Procedures None Summary of Care Provided Minutes Spent on Discharge: 25 Hospital Course: Patient is a 28-year-old female who presented to [facility] ED on 07/15/2023 for opiate detoxification. Short hospital course as noted below. Opiate abuse, polysubstance abuse: Presented for opiate detox. On admission patient reported using opiates daily for past 2 years. Urine drug screen on admission negative for opiates but this is common with fentanyl use; was positive for cocaine use. Patient notably appeared to be high on opiates in the room on 07/16, had concern for possible illicit opiate use in hospital. Case management, addiction medicine nurse followed. Had concern throughout the admission that patient was sneaking opiates, as she continued to appear high frequently up until day of discharge. Opiate withdrawal order set with Subutex taper was ordered on admission, however the patient did not take any doses of Subutex for fear that it would precipicate withdrawal. Patient ultimately discharged on 07/18 with plan to follow up with [facility] for further addiction medicine services. Nicotine abuse: Patient reported vaping on a consistent basis. Denied need for nicotine patch on admission. History of anxiety: Continued home BuSpar. Discharge diagnoses: - Opiate abuse - Polysubstance abuse - Nicotine abuse - History of anxiety Total clinical time spent by myself addressing the patient's discharge needs: 25 minutes. Physical Exam Const alert, oriented x3, no apparent distress and average body habitus Constitutional Narrative: Patient alert and oriented this morning, answering questions appropriately, no acute distress. General Appearance: cooperative and comfortable HEENT normocephalic, head/scalp atraumatic, hearing grossly normal bilaterally, nasal mucous membranes and turbinates normal and moist oral mucous membranes Eyes PERRL, EOMs intact bilaterally and conjunctivae normal Neck full ROM, no lymphadenopathy and supple Lymph Lymphatic: no lymphadenopathy noted Chest inspection of chest normal Resp normal respiratory effort, normal air movement, no use of accessory muscles and clear to auscultation bilaterally Cardio regular rate, regular rhythm, no murmurs and peripheral pulses 2+ throughout GI normal to inspection, nondistended, normoactive bowel sounds, soft to palpation, non-tender and non-distended Back/Spine normal ROM Extremity normal to inspection, full ROM and no pedal edema Skin no rashes or lesions noted Weight / BMI Weight Weight: 70.5 kg Body Mass Index (BMI) 26.6 ABG / Lab / Microbiology Data 07/16/23 01:35 07/16/23 01:35 D/C Instructions Discharge Diet: No restrictions Weight Bearing Status: Full weight bearing Pending Tests Upon Discharge: None Please Follow Up With: Mauro Correa MD When: As needed Meaningful Use Info Meaningful Use Diagnoses (Choose all that apply): None applicable Discharge Plan Admission Admit Date/Time: 07/16/23 03:19 Primary Reason for Your Visit: Opiate detoxification Attending Provider: Mansoor Licona Primary Care Provider: Mauro Correa Consulting Providers: Azeb Zurita Instructions Additional Instructions / Restrictions: Continue home BuSpar medication as prescribed. Follow-up with your primary care doctor as needed. Follow-up with [facility] for further addiction medicine services as needed. Discharge Orders/Prescriptions Prescriptions: Continued buspirone 10 mg tablet 10 mg PO DAILY Discontinued ondansetron HCl 8 mg Tablet 8 mg PO Q8H PRN PRN (Reason: NAUSEA) Qty: 10 0RF hydroxyzine HCl 50 mg tablet 50 mg PO Q8H PRN (Reason: anxiety) Patient Comments: take 1 tablet by mouth every 8 hours if needed for anxiety Referrals / Follow Up: Mauro oCrrea MD [Primary Care Provider] - Mauro Correa MD [[facility]] - Disposition Disposition (needs filled in before D/C Order can be placed): Home, Self Care Charges/Coding Visit Charges Inpatient E&M: 93040 Disch Hosp
[2023-07-18 14:03] VITALS: BP 125/85; PULSE 80; RESP 16; TEMP 36.8; O2SAT 98
== END 2023-07-18 15:19 | disposition home or self-care (01) | DRG 773 ==
LOC: ED 02:59 → MS3 03:55
PROVIDERS: Admitting Provider Internal Medicine; Emergency Provider Emergency Medicine; PCP Family Medicine; Visit Provider Hospitalist
DX: F11.23 Opioid dependence with withdrawal (principal); F14.90 Cocaine use, unspecified, uncomplicated; F32.A Depression, unspecified; F41.9 Anxiety disorder, unspecified; F17.290 Nicotine dependence, other tobacco product, uncomplicated; Z79.899 Other long term (current) drug therapy
CPT/HCPCS: 36415; 80053; 80307; 82077; 84703; 85025; 99283; 99406; 90686